=== PATIENT | male | born 1990 | race Caucasian/White ===

== ENCOUNTER 2017-03-30 09:13 | Emergency (ER) | payer BC ==
[2017-03-30 09:59] VITALS: RESP 16
[2017-03-30] MEDS ORDERED: ONDANSETRON 4 MG/2 ML VIAL IVP STA (10:22)
[2017-03-30] MEDS ORDERED: SODIUM CHLORIDE 0.9% 1,000 ML IV STA ×2 (10:22)
[2017-03-30] MEDS ORDERED: FAMOTIDINE 20 MG/2 ML VIAL IV STA (10:22)
--- NOTE | 2017-03-30 10:26 | ED ---
General Adult HPI - General Chief complaint: Abdominal Pain Stated complaint: Weakness Time Seen by Provider: 03/30/17 10:10 Source: patient, RN notes reviewed Mode of arrival: wheelchair Limitations: no limitations - History of Present Illness Initial comments: Patient is a 26-year-old male who presents emergency room today with chief complaint of abdominal pain and feeling weak. Patient does admit that symptoms started 4 days ago. States feels like he needs to have bowel movement but is only having small amounts. States he's had loose stools. Does admit that he was on her recent antibiotic approximately 2 weeks ago for a sinus infection. Does admit that there is improvement of the sinus congestion but is now had some symptoms of nausea. Admits to increased acid reflux. Admits to generalized cramping in his abdomen that comes and goes. States her cramping at this time. Patient denies any recent fever, chills, shortness of breath, chest pain, back pain, numbness or tingling, dysuria or hematuria, constipation or diarrhea, headaches or visual changes, or any other complaints. - Related Data Home Medications Medication Instructions Recorded Confirmed Fluticasone Nasal [place] [Flonase 1 spray EA NOSTRIL DAILY 03/30/17 03/30/17 Nasal [place]an[place]va] Ibuprofen [Motrin] 800 mg PO DAILY PRN 03/30/17 03/30/17 Loratadine [Claritin] 10 mg PO DAILY 03/30/17 03/30/17 Previous Rx's Medication Instructions Recorded Ondansetron Odt [Zofran ODT] 4 mg PO Q8HR PRN #20 tab 03/30/17 Allergies Allergy/AdvReac Type Severity Reaction Status Date / Time No Known Allergies Allergy Verified 03/30/17 11:10 Review of Systems ROS Statement: Those systems with pertinent positive or pertinent negative responses have been documented in the HPI. ROS Other: All systems not noted in ROS Statement are negative. Past Medical History Past Medical History: No Reported History History of Any Multi-Drug Resistant Organisms: None Reported Past Surgical History: No Surgical Hx Reported Past Psychological History: No Psychological Hx Reported Smoking Status: Never smoker Past Alcohol Use History: Occasional Past Drug Use History: None Reported General Exam Limitations: no limitations Course Vital Signs 03/30/17 03/30/17 09:54 12:48 Temperature 98.5 F 97.5 F L Pulse Rate 80 72 Respiratory 16 16 Rate Blood Pressure 154/100 132/78 O2 Sat by Pulse 98 98 Oximetry Medical Decision Making - Medical Decision Making Patient reexamined at this time shows no signs of distress. Patient does admit that he is feeling better here in the emergency room. Patient's labs been reviewed are unremarkable. X-ray of the abdomen was nonspecific. Patient was on antibiotics recently. Advised that it may be just reaction to the antibiotic. However, it was discussed about possibility of C. diff. Patient has not had any bowel movement here the emergency room but will be provided a prescription to have C. diff tests performed. Patient will also be given Zofran. Advised increased fluids. Advised follow-up family doctor over the next 2 days return to emergency room if any symptoms increase or worsen. Patient states understanding and is in agreement. - Lab Data Result diagrams: 03/30/17 12:00 03/30/17 12:00 Lab Results 03/30/17 03/30/17 Range/Units 12:00 12:00 WBC 10.3 (3.8-10.6) k/uL RBC 5.56 (4.30-5.90) m/uL Hgb 15.8 (13.0-17.5) gm/dL Hct 47.5 (39.0-53.0) % MCV 85.4 (80.0-100.0) fL MCH 28.4 (25.0-35.0) pg MCHC 33.3 (31.0-37.0) g/dL RDW 12.7 (11.5-15.5) % Plt Count 340 (150-450) k/uL Neutrophils % 63 % Lymphocytes % 28 % Monocytes % 6 % Eosinophils % 1 % Basophils % 1 % Neutrophils # 6.5 (1.3-7.7) k/uL Lymphocytes # 2.9 (1.0-4.8) k/uL Monocytes # 0.6 (0-1.0) k/uL Eosinophils # 0.1 (0-0.7) k/uL Basophils # 0.1 (0-0.2) k/uL Sodium 143 (137-145) mmol/L Potassium 4.0 (3.5-5.1) mmol/L Chloride 103 (98-107) mmol/L Carbon Dioxide 28 (22-30) mmol/L Anion Gap 12 mmol/L BUN 14 (9-20) mg/dL Creatinine 0.98 (0.66-1.25) mg/dL Est GFR (MDRD) Af Amer >60 (>60 ml/min/1.73 sqM) Est GFR (MDRD) Non-Af >60 (>60 ml/min/1.73 sqM) Glucose 82 (74-99) mg/dL Calcium 9.8 (8.4-10.2) mg/dL Total Bilirubin 0.9 (0.2-1.3) mg/dL AST 18 (17-59) U/L ALT 40 (21-72) U/L Alkaline Phosphatase 71 (38-126) U/L Total Protein 7.8 (6.3-8.2) g/dL Albumin 4.5 (3.5-5.0) g/dL Amylase 55 (30-110) U/L Lipase 79 (23-300) U/L Disposition Clinical Impression: Nausea vomiting and diarrhea Disposition: HOME SELF-CARE Condition: Good Instructions: Acute Diarrhea (ED) Additional Instructions: Please use medication as discussed. Please follow-up with family doctor in the next 2 days of symptoms have not improved. Please return to emergency room if the symptoms increase or worsen or for any other concerns. Prescriptions: Ondansetron Odt [Zofran ODT] 4 mg PO Q8HR PRN #20 tab PRN Reason: Nausea Referrals: Jabsir Calvo MD [Primary Care Provider] - 1-2 days Time of Disposition: 13:08
--- NOTE | 2017-03-30 12:00 | XR ---
EXAMINATION TYPE: XR KUB DATE OF EXAM: 03/30/2017 11:56 AM COMPARISON: NONE HISTORY: Pain TECHNIQUE: Single supine KUB image of the abdomen is obtained FINDINGS: Small bowel demonstrates no evidence for dilatation or air fluid levels. Gas and fecal material is seen in non-distended colon. No convincing evidence for pneumoperitoneum. No unusual calcifications. The lung bases are clear. The osseous structures are intact. IMPRESSION: 1. Overall nonobstructive bowel gas pattern.
[2017-03-30 12:17] LABS: Basophils # (A) 0.1 k/uL (0-0.2); Basophils % (A) 1 %; CH 28.9; CHCM 33.9; Eosinophils # (A) 0.1 k/uL (0-0.7); Eosinophils % (A) 1 %; HCT 47.5 % (39.0-53.0); HDW 2.45; HGB 15.8 gm/dL (13.0-17.5); Luc # (Auto) 0.17; Luc % (Auto) 2; Lymphocytes # (A) 2.9 k/uL (1.0-4.8); Lymphocytes % (A) 28 %; MCH 28.4 pg (25.0-35.0); MCHC 33.3 g/dL (31.0-37.0); MCV 85.4 fL (80.0-100.0); Mean Platelet Volume 6.8; Monocytes # (A) 0.6 k/uL (0-1.0); Monocytes % (A) 6 %; Neutrophils # (A) 6.5 k/uL (1.3-7.7); Neutrophils % (A) 63 %; RBC 5.56 m/uL (4.30-5.90); RDW 12.7 % (11.5-15.5); WBC 10.3 k/uL (3.8-10.6)
[2017-03-30 12:34] LABS: ALT 40 U/L (21-72); AST 18 U/L (17-59); Alkaline Phosphatase 71 U/L (38-126); Amylase 55 U/L (30-110); Anion Gap 12 mmol/L; Blood Urea Nitrogen 14 mg/dL (9-20); Calcium 9.8 mg/dL (8.4-10.2); Carbon Dioxide 28 mmol/L (22-30); Chloride 103 mmol/L (98-107); Glucose 82 mg/dL (74-99); Non-African American GFR(MDRD) >60 (>60 ml/min/1.73 sqM); Sodium 143 mmol/L (137-145); Total Bilirubin 0.9 mg/dL (0.2-1.3); Total Protein 7.8 g/dL (6.3-8.2)
[2017-03-30 13:10] LABS: Appearance,Urine Clear (Clear); Bilirubin,Urine Negative (Negative); Glucose,Urine (UA) Negative (Negative); Ketones,Urine Negative (Negative); Leukocyte Esterase,Urine Negative (Negative); Nitrite,Urine Negative (Negative); PH, Urine 6.5 (5.0-8.0); Protein,Urine Negative (Negative); Specific Gravity,Urine 1.017 (1.001-1.035); UA Billing (MACRO vs. MICRO) CHEM; Urobilinogen,Urine <2.0 mg/dL (<2.0)
[2017-03-30 13:50] VITALS: BP 146/87; PULSE 90; TEMP 97.4
== END 2017-03-30 13:48 | disposition home or self-care (01) ==
LOC: EC 09:13
DX: R11.2 Nausea with vomiting, unspecified (principal); R19.7 Diarrhea, unspecified; R10.84 Generalized abdominal pain; R53.1 Weakness; Z79.51 Long term (current) use of inhaled steroids; Z79.899 Other long term (current) drug therapy
CPT/HCPCS: 36415; 80053; 82150; 83690; 85025; 81003; 74000; 99284; 96374; 96375; 96361; J2405

== ENCOUNTER → 2019-07-14 | Outpatient (CLI) | payer BC ==
[2019-07-14 16:40] LABS: ALT 30 U/L (10-49); AST 20 U/L (14-35)
== END | disposition home or self-care (01) ==
LOC: LABWHC1 12:03
PROVIDERS: ATTEND Podiatrist Foot & Ankle Surgery
DX: K76.9 Liver disease, unspecified (principal)
CPT/HCPCS: 36415; 84450; 84460

== ENCOUNTER → 2019-09-15 | Outpatient (CLI) | payer BC ==
[2019-09-15 19:11] LABS: ALT 22 U/L (10-49); AST 16 U/L (14-35)
== END | disposition home or self-care (01) ==
LOC: LABWHC1 13:28
PROVIDERS: ATTEND Podiatrist Foot & Ankle Surgery
DX: K76.9 Liver disease, unspecified (principal)
CPT/HCPCS: 36415; 84450; 84460

== ENCOUNTER → 2019-11-02 | Outpatient (CLI) | payer BC ==
[2019-11-02 19:37] LABS: ALT 23 U/L (10-49); AST 21 U/L (14-35)
== END | disposition home or self-care (01) ==
LOC: LABWHC1 13:50
PROVIDERS: ATTEND Podiatrist Foot & Ankle Surgery
DX: K76.9 Liver disease, unspecified (principal)
CPT/HCPCS: 36415; 84450; 84460

== ENCOUNTER 2024-07-31 16:53 | Emergency (ER) | payer BC ==
[2024-07-31 17:02] VITALS: TEMP 98.5
--- NOTE | 2024-07-31 17:08 | ED ---
Abdominal Pain HPI - General Chief Complaint: Abdominal Pain Stated Complaint: Abd pain Time Seen by Provider: 07/31/24 17:07 Source: patient, RN notes reviewed Mode of arrival: ambulatory Limitations: no limitations - History of Present Illness Initial Comments: 34-year-old male with no significant history presents emergency department for chief complaint of right lower quadrant abdominal pain. Patient states that over the past week he has been feeling constipated where he took MiraLAX at home and had a episode of diarrhea this morning. Patient states that right lower quadrant abdominal pain has been present over the past 3 to 4 days. Denies mi gration of pain. Denies nausea, vomiting, fevers, chills. No previous surgical abdominal history. Patient was evaluated urgent care this afternoon where he was instructed report to the emergency department for further evaluation of potential appendicitis. - Related Data Home Medications Medication Instructions Recorded Confirmed Escitalopram [Lexapro] 10 mg PO DAILY 07/31/24 07/31/24 Losartan-Hctz 50-12.5 mg [Hyzaar 1 tab PO DAILY 07/31/24 07/31/24 50-12.5] Rosuvastatin [Crestor] 10 mg PO DAILY 07/31/24 07/31/24 Allergies Allergy/AdvReac Type Severity Reaction Status Date / Time No Known Allergies Allergy Verified 07/31/24 18:23 Review of Systems ROS Statement: Those systems with pertinent positive or pertinent negative responses have been documented in the HPI. ROS Other: All systems not noted in ROS Statement are negative. Past Medical History Past Medical History: No Reported History History of Any Multi-Drug Resistant Organisms: None Reported Past Surgical History: No Surgical Hx Reported Past Psychological History: No Psychological Hx Reported Smoking Status: Never smoker Past Alcohol Use History: Occasional Past Drug Use History: Marijuana General Exam Limitations: no limitations General appearance: alert, in no apparent distress ENT exam: Present: normal exam, mucous membranes moist Neck exam: Present: normal inspection. Absent: tenderness, meningismus, lymphadenopathy Respiratory exam: Present: normal lung sounds bilaterally. Absent: respiratory distress, wheezes, rales, rhonchi, stridor Cardiovascular Exam: Present: regular rate, normal rhythm, normal heart sounds. Absent: systolic murmur, diastolic murmur, rubs, gallop, clicks GI/Abdominal exam: Present: soft, tenderness (McBurney point tenderness), normal bowel sounds. Absent: distended, guarding, rebound, rigid Extremities exam: Present: normal inspection, full ROM, normal capillary refill. Absent: tenderness, pedal edema, joint swelling, calf tenderness Back exam: Present: normal inspection Skin exam: Present: warm, dry, intact, normal color. Absent: rash Course Vital Signs 07/31/24 07/31/24 16:57 18:45 Temperature 98.5 F Pulse Rate 68 82 Respiratory 20 16 Rate Blood Pressure 168/94 128/86 O2 Sat by Pulse 99 98 Oximetry Medical Decision Making - Medical Decision Making Was pt. sent in by a medical professional or institution (, PA, INDUSTRIAL RETROFIT DESIGNER, urgent care, hospital, or [place] health care facility...) When possible be specific @ -Was advised by urgent care to report to the emergency department for further evaluation of right lower quadrant abdominal pain Did you speak to anyone other than the patient for history (EMS, parent, family, police, friend...)? What history was obtained from this source @ -No Did you review nursing and triage notes (agree or disagree)? Why? @ -I reviewed and agree with nursing and triage notes Were old charts reviewed (outside hosp., previous admission, EMS record, old EKG, old radiological studies, urgent care reports/EKG's, [place] health care facility records)? Report findings @ -No old charts were reviewed Differential Diagnosis (chest pain, altered mental status, abdominal pain women, abdominal pain men, vaginal bleeding, weakness, fever, dyspnea, syncope, headache, dizziness, GI bleed, back pain, seizure, CVA, palpatations, mental health, musculoskeletal)? @ -Differential Abdominal Pain Men: Appendicitis, cholecystitis, diverticulosis, ischemic bowel, pancreatitis, hepatitis, UTI, gastroenteritis, AAA, incarcerated hernia, bowel obstruction, constipation, inflammatory bowel, hepatitis, peptic ulcer disease, splenic infarction, perforated viscus, testicular torsion, this is not meant to be an all-inclusive list EKG interpreted by me (3pts min.). @ -None X-rays interpreted by me (1pt min.). @ -None done CT interpreted by me (1pt min.). @ -CT of the abdomen and pelvis with IV contrast no suspicious abnormalities through the right lower quadrant, appendix well-visualized. U/S interpreted by me (1pt. min.). @ -None done What testing was considered but not performed or refused? (CT, X-rays, U/S, labs)? Why? @ -None What meds were considered but not given or refused? Why? @ -None Did you discuss the management of the patient with other professionals (professionals i.e. , PA, INDUSTRIAL RETROFIT DESIGNER, lab, RT, psych nurse, neonatal social worker, yard cleaner, teacher, assault amphibious vehicle officer, case manager specialist)? Give summary @ -No Was smoking cessation discussed for >3mins.? @ -No Was critical care preformed (if so, how long)? @ -No Were there social determinants of health that impacted care today? How? (Homelessness, low income, unemployed, alcoholism, drug addiction, transportation, low edu. Level, literacy, decrease access to med. care, detention, rehab)? @ -No Was there de-escalation of care discussed even if they declined (Discuss DNR or withdrawal of care, Hospice)? DNR status @ -No What co-morbidities impacted this encounter? (DM, HTN, Smoking, COPD, CAD, Cancer, CVA, ARF, Chemo, Hep., AIDS, mental health diagnosis, sleep apnea, morbid obesity)? @ -None Was patient admitted / discharged? Hospital course, mention meds given and route, prescriptions, significant lab abnormalities, going to OR and other pertinent info. @ -Discharged. 34-year-old with right lower quadrant abdominal pain. On examination patient noted to have tenderness over McBurney's point, no rebound tenderness, negative Rovsing's sign. Patient was offered pain medication at this time but he states that he is feeling fine declined. CBC, CMP, coagulation profile within normal limits, CT negative for acute intra-abdominal process. Discussed with patient at bedside that current laboratory studies and CT imaging are not indicative of acute appendicitis however return to emergency department for new or worsening symptoms. All questions answered at bedside and strict return parameters discussed with the patient is verbalized understanding. Discussed with Dr. Sorensen Undiagnosed new problem with uncertain prognosis? @ -No Drug Therapy requiring intensive monitoring for toxicity (Heparin, Nitro, Insulin, Cardizem)? @ -No Were any procedures done? @ -No Diagnosis/symptom? @ -Abdominal pain Acute, or Chronic, or Acute on Chronic? @ -acute Uncomplicated (without systemic symptoms) or Complicated (systemic symptoms)? @ -uncomplicated Side effects of treatment? @ -No Exacerbation, Progression, or Severe Exacerbation? @ -No Poses a threat to life or bodily function? How? (Chest pain, [place], [place], pneumonia, PE, COPD, DKA, ARF, appy, cholecystitis, CVA, Diverticulitis, Homicidal, Suicidal, threat to staff... and all critical care pts) @ -No - Lab Data Result diagrams: 07/31/24 17:29 07/31/24 17:29 Lab Results 07/31/24 07/31/24 07/31/24 Range/Units 17:29 17:29 17:29 WBC 8.7 (3.8-10.6) k/uL RBC 5.23 (4.30-5.90) m/uL Hgb 15.1 (13.0-17.5) gm/dL Hct 45.4 (39.0-53.0) % MCV 86.7 (80.0-100.0) fL MCH 28.8 (25.0-35.0) pg MCHC 33.3 (31.0-37.0) g/dL RDW 12.4 (11.5-15.5) % Plt Count 339 (150-450) k/uL MPV 7.7 Neutrophils % 59 % Lymphocytes % 32 % Monocytes % 6 % Eosinophils % 1 % Basophils % 0 % Neutrophils # 5.1 (1.3-7.7) k/uL Lymphocytes # 2.7 (1.0-4.8) k/uL Monocytes # 0.5 (0-1.0) k/uL Eosinophils # 0.1 (0-0.7) k/uL Basophils # 0.0 (0-0.2) k/uL PT 9.9 L (10.0-12.5) sec INR 0.9 (<1.2) APTT 25.3 (22.0-30.0) sec Sodium 141 (137-145) mmol/L Potassium 4.1 (3.5-5.1) mmol/L Chloride 101 (98-107) mmol/L Carbon Dioxide 28 (22-30) mmol/L Anion Gap 12 mmol/L BUN 14 (9-20) mg/dL Creatinine 0.94 (0.66-1.25) mg/dL Est GFR (CKD-EPI)AfAm >90 (>60 ml/min/1.73 sqM) Est GFR (CKD-EPI)NonAf >90 (>60 ml/min/1.73 sqM) Glucose 90 (74-99) mg/dL Plasma Lactic Acid Adrian (0.7-2.0) mmol/L Calcium 9.8 (8.4-10.2) mg/dL Total Bilirubin 0.7 (0.2-1.3) mg/dL AST 29 (17-59) U/L ALT 30 (4-49) U/L Alkaline Phosphatase 63 (38-126) U/L Total Protein 7.6 (6.3-8.2) g/dL Albumin 4.9 (3.5-5.0) g/dL Amylase 55 (30-110) U/L Lipase 92 (23-300) U/L 07/31/24 Range/Units 17:29 WBC (3.8-10.6) k/uL RBC (4.30-5.90) m/uL Hgb (13.0-17.5) gm/dL Hct (39.0-53.0) % MCV (80.0-100.0) fL MCH (25.0-35.0) pg MCHC (31.0-37.0) g/dL RDW (11.5-15.5) % Plt Count (150-450) k/uL MPV Neutrophils % % Lymphocytes % % Monocytes % % Eosinophils % % Basophils % % Neutrophils # (1.3-7.7) k/uL Lymphocytes # (1.0-4.8) k/uL Monocytes # (0-1.0) k/uL Eosinophils # (0-0.7) k/uL Basophils # (0-0.2) k/uL PT (10.0-12.5) sec INR (<1.2) APTT (22.0-30.0) sec Sodium (137-145) mmol/L Potassium (3.5-5.1) mmol/L Chloride (98-107) mmol/L Carbon Dioxide (22-30) mmol/L Anion Gap mmol/L BUN (9-20) mg/dL Creatinine (0.66-1.25) mg/dL Est GFR (CKD-EPI)AfAm (>60 ml/min/1.73 sqM) Est GFR (CKD-EPI)NonAf (>60 ml/min/1.73 sqM) Glucose (74-99) mg/dL Plasma Lactic Acid Adrian 1.2 (0.7-2.0) mmol/L Calcium (8.4-10.2) mg/dL Total Bilirubin (0.2-1.3) mg/dL AST (17-59) U/L ALT (4-49) U/L Alkaline Phosphatase (38-126) U/L Total Protein (6.3-8.2) g/dL Albumin (3.5-5.0) g/dL Amylase (30-110) U/L Lipase (23-300) U/L Disposition Clinical Impression: Abdominal pain Disposition: HOME SELF-CARE Condition: Good Instructions (If sedation given, give patient instructions): Abdominal Pain (ED) Additional Instructions: Return to the emergency department for any new or worsening symptoms Is patient prescribed a controlled substance at d/c from ED?: No Referrals: Jasbir Calvo MD [Primary Care Provider] - 1-2 days Time of Disposition: 18:20
[2024-07-31 17:50] LABS: Basophils % (A) 0 %; Eosinophils # (A) 0.1 k/uL (0-0.7); Eosinophils % (A) 1 %; HCT 45.4 % (39.0-53.0); HGB 15.1 gm/dL (13.0-17.5); Lymphocytes # (A) 2.7 k/uL (1.0-4.8); Lymphocytes % (A) 32 %; MCH 28.8 pg (25.0-35.0); MCHC 33.3 g/dL (31.0-37.0); MCV 86.7 fL (80.0-100.0); Mean Platelet Volume 7.7; Monocytes # (A) 0.5 k/uL (0-1.0); Monocytes % (A) 6 %; Neutrophils # (A) 5.1 k/uL (1.3-7.7); Neutrophils % (A) 59 %; Platelet Count 339 k/uL (150-450); RBC 5.23 m/uL (4.30-5.90); RDW 12.4 % (11.5-15.5); WBC 8.7 k/uL (3.8-10.6)
[2024-07-31 18:02] LABS: INR 0.9 (<1.2); Partial Thromboplastin Time 25.3 sec (22.0-30.0); Prothrombin Time 9.9 sec (10.0-12.5)
--- NOTE | 2024-07-31 18:02 | CT ---
EXAMINATION TYPE: CT abdomen pelvis w con DATE OF EXAM: 07/31/2024 COMPARISON: None INDICATION: RLQ abdominal pain DLP: 963.8 mGycm, Automated exposure control for dose reduction was used. CONTRAST: 100 ml mL of Isovue 300. Study performed without Oral Contrast TECHNIQUE: Axial images were obtained from above the diaphragm to the pubic rami in the axial plane a t 5 mm thick sections. Reconstructed images are reviewed on the computer in the coronal plane. FINDINGS: Limited CT sections are obtained the lung bases. The lung bases are clear. CT ABDOMEN: Liver: Normal Spleen: Normal Pancreas: Normal Adrenal glands: The adrenal glands are normal. Gallbladder: Normal Kidneys: No masses are evident. No hydronephrosis is present. No cysts are present. Delayed images were obtained through the kidneys, which remain unremarkable. Aorta: Normal Inferior vena cava: Normal. CT PELVIS: Loops of bowel within the abdomen and pelvis are normal. This study is without oral contrast limi ting bowel evaluation. Small amount of fluid filled small bowel loops within the lower pelvis may be some mild ileus. Appendix: Well-visualized. No adjacent inflammatory changes or dilatation is evident. Urinary bladder: Normal. Genitourinary structures: Prostate appears normal. Osseous structures: No suspicious lytic or sclerotic lesions. IMPRESSION: 1. No suspicious abnormality without right lower quadrant pain. 2. Well-visualized appendix. Clinical management for any suspected appendicitis. [facility], , 07/31/2024 5:59 PM
[2024-07-31 18:11] LABS: ALT 30 U/L (4-49); AST 29 U/L (17-59); African American GFR (CKD) >90 (>60 ml/min/1.73 sqM); Albumin 4.9 g/dL (3.5-5.0); Alkaline Phosphatase 63 U/L (38-126); Amylase 55 U/L (30-110); Anion Gap 12 mmol/L; Blood Urea Nitrogen 14 mg/dL (9-20); Calcium 9.8 mg/dL (8.4-10.2); Carbon Dioxide 28 mmol/L (22-30); Chloride 101 mmol/L (98-107); Glucose 90 mg/dL (74-99); Lipase 92 U/L (23-300); Non-African American GFR(CKD) >90 (>60 ml/min/1.73 sqM); Potassium 4.1 mmol/L (3.5-5.1); Sodium 141 mmol/L (137-145); Total Bilirubin 0.7 mg/dL (0.2-1.3); Total Protein 7.6 g/dL (6.3-8.2)
[2024-07-31 18:47] VITALS: BP 128/86; PULSE 82; RESP 16
== END 2024-07-31 18:47 | disposition home or self-care (01) ==
LOC: EC 16:53
DX: R10.9 Unspecified abdominal pain (principal)
CPT/HCPCS: 36415; 74177; 80053; 82150; 83605; 83690; 85025; 85610; 85730; 99284

== ENCOUNTER → 2024-08-21 | Outpatient (CLI) | payer BC ==
--- NOTE | 2024-08-21 12:16 | XR ---
EXAMINATION TYPE: XR cervical spine 3 views DATE OF EXAM: 08/21/2024 Comparison: None Clinical History: 34-year-old male left-sided pain and numbness, M54.12 radiculopathy Findings: No predental space widening or prevertebral soft tissue swelling. Alignment is preserved as are disc interspaces. No acute fracture seen. Normal odontoid view. Mild early uncovertebral joint spurring in the mid cervical spine. Impression: Mild early uncovertebral joint degenerative spurring in the mid cervical spine. Otherwise, unremarkab le radiographic appearance. [facility], , 08/21/2024 12:14 PM
== END | disposition home or self-care (01) ==
LOC: RADXRMAIN 10:53
PROVIDERS: ATTEND Internal Medicine
DX: M50.10 Cervical disc disorder with radiculopathy, unspecified cervical region (principal)
CPT/HCPCS: 72040

== ENCOUNTER → 2024-10-24 | Outpatient (CLI) | payer BC ==
--- NOTE | 2024-10-27 20:46 | MR ---
EXAMINATION TYPE: MR cervical spine wo con DATE OF EXAM: 10/24/2024 6:04 PM COMPARISON: None. CLINICAL INDICATION: Male, 34 years old with history of M54.12, Neck pain and numbness into left arm x3-4 months TECHNIQUE: Multiplanar multiecho imaging on a 3.0 Rocio magnet is performed through the cervical spin e. IV Contrast: mL (None, if empty) FINDINGS: The craniovertebral junction is normal. Vertebral body alignment is normal. Some mild di sc desiccation may be at C2-C3 C3-C4 levels. C7-T1: No focal disc herniation or significant disc bulge is evident. No spinal canal stenosis or n eural foraminal stenosis is present. C6-7: No focal disc herniation or significant disc bulge is evident. No spinal canal stenosis or anuj ral foraminal stenosis is present. C5-6: Left paracentral disc herniation appears to be present with mild anterior thecal sac compressio n. No cord contact. No spinal canal stenosis is present correlate with left radicular symptoms. C4-5: No focal disc herniation or significant disc bulge is evident. No spinal canal stenosis. Mild bilateral foraminal narrowing is present C3-4: No focal disc herniation or significant disc bulge is evident. No spinal canal stenosis or anuj ral foraminal stenosis is present. C2-3: No focal disc herniation or significant disc bulge is evident. No spinal canal stenosis or anuj ral foraminal stenosis is present. IMPRESSION: 1. Left paracentral disc herniation C5-6 without cord contact or spinal canal stenosis. Correlate wit h left C5 radicular symptoms [facility], , 10/27/2024 8:43 PM
== END | disposition home or self-care (01) ==
LOC: RADMRIMAIN 17:10
PROVIDERS: ATTEND Internal Medicine
DX: M50.122 Cervical disc disorder at C5-C6 level with radiculopathy (principal)
CPT/HCPCS: 72141

== ENCOUNTER → 2024-12-11 | Outpatient (CLI) | payer BC ==
[2024-12-11 12:11] VITALS: BP 136/85; PULSE 84; RESP 19; TEMP 97.5
--- NOTE | 2024-12-11 15:20 | P.PAINPG ---
PQRS Measure Charge Sheet Comment: HISTORY OF PRESENT ILLNESS: A 34 yr old male as a referral from Dr Calvo presents today w severe and chronic neck pain secondary to radiculopathy, spondylosis and facet arthropathy without myelopathy for evaluation. Pt states pain level is provoked at 6 /10 in intensity, constant, localized in the mid to lower cervical spine, predominantly axial, sharp in character w occasional shooting pain towards the LUE. Pain is provoked by lifting. Pain is alleviated by PT x 6 wks which ended in Oct 2024, physician guided home exercises 4-5times weekly since Oct 2024, medications (Ibu), topical, repositioning and rest . Cervical disability score at 26. PMH: OA, HTN, Hyperlipidemia, MDD, Seasonal Allergies PSH: Denies SH: Never smoker, Occ ETOH use, Cannabis use FH: Non contributory All: See list Meds: See list REVIEW OF ORGAN SYSTEMS: CONSTITUTIONAL: No fevers or chills. No recent weight loss. NEUROLOGICAL: + numbness and tingling along the distal extremities. No seizure disorders or headaches. MUSCULOSKELETAL: + pain PSYCHIATRIC: Denies current depression or suicidal thoughts. Physical Examinations : Constitutional : Cooperative , not in acute distress . Neurologic : Cranial nerve II to XII intact. No focal neurological deficits. Psychiatric : alert & oriented x 3. Matching mood & appropriate affect. Judgment & insight intact. Musculoskeletal : Cervical Spine Motor strength in the deltoid and biceps: Normal right side. Normal Left side Motor strength biceps and the wrist extensors: Normal right side . Normal left side Motor strength in the triceps muscle: Normal right side. Normal left side Deep tendon reflexes: Normal at the biceps. Normal at Brachioradialis. Normal at triceps Vertebral body tenderness to deep palp ation over C6 Cervical facet loading test: positive bilaterally Spurling test: positive L> R C6-C7 Neck distraction test: positive bilaterally Kenny sign: positive bilaterally Lumbar spine Motor strength lower extremities ,thigh and legs 5/5 Right side , 5/5 Left side Deep tendon reflexes : Normal Knee Jerk. Normal Ankle Jerk Vertebral body tenderness over Cornejo Test positive Lumbar facet Loading Test: positive Right / positive Left Range of motion of the lumbar spine Flexion 30 degrees, extension 10 degrees Straight Leg Raise test: Left/ Right positive at degrees Ranjan test: positive right / positive left. Severe tenderness over the Sacroiliac joint on the Right / Left sides Gaenslen test: positive bilaterally Seated flexion test: positive bilaterally. Sacral spine : Severe tenderness over the Sacroiliac joint: right side / left side Range of motion: Flexion of the lumbar spine <60 degrees Range of motion: Extension of the lumbar spine <20 degrees Gaenslen's Test positive Ranjan test: positive right side / left side Thigh Thrust Test Sacral Thrust Test Imaging: MRI non contrast cervical spine from 10/24/25 reviewed Assessment/ Plan : L paracentral C5-C6 herniation Recommendation of GERARD L paramedian C6-C7 #1. Risks, benefits of procedure discussed and patient verbalized understanding. Admits to anti- coagulant use or medical history of diabetes. Protocol for discontinuation/ continuation of medications jessy procedure discussed. All questions answered. I have spent greater than 30 minutes on patient care today. Dr Fox was available by phone for the evaluation of this patient. The time was used to review the medical records including relevant urine studies and Prescription history (MAPs), review of the available imaging, evaluation and examination of the patient, coordination of care with the medical staff and if applicable referring physicians, as well as creation of the medical record PQRS Narrative: Smoking Status Never smoker Home Medications: Ambulatory Orders Escitalopram [Lexapro] 10 mg PO DAILY 07/31/24 Losartan-Hctz 50-12.5 mg [Hyzaar 50-12.5] 1 tab PO DAILY 07/31/24 Rosuvastatin [Crestor] 10 mg PO DAILY 07/31/24 Controlled Substance Measures - Controlled Substance Measures Is patient prescribed a controlled substance at discharge?: No
== END ==
LOC: PNWHC3 09:58
PROVIDERS: ATTEND Specialist
DX: M50.222 Other cervical disc displacement at C5-C6 level (principal)
CPT/HCPCS: 99211

== ENCOUNTER 2025-01-05 06:11 | Day surgery (SDC) | payer BC ==
[~2025-01-05 06:11] MED LIST: LACTATED RINGERS 1,000 ML IV SCH
[2025-01-05 06:31] VITALS: TEMP 97.5
[2025-01-05] MEDS ORDERED: DEXAMETHASONE SOD PHOSPHATE 10 MG/ML 1 ML VIAL ONE (07:04)
[2025-01-05] MEDS ORDERED: IOPAMIDOL M200 10 ML VIAL ONE (07:04)
--- NOTE | 2025-01-05 07:15 | P.PCN ---
Date of Procedure: 01/05/25 Procedure(s) Performed: . PROCEDURE 1. Cervical epidural steroid injection under fluoroscopic guidance, C6-7 (fluoroscopy images available in the radiology department ) 2. Cervical epidurogram. PREOPERATIVE DIAGNOSIS: 1- Cervical herniated Disc Diseases 2- Cervical radiculopathy. POSTOPERATIVE DIAGNOSIS: : 1- Cervical Herniated Disc Diseases , 2- Cervical radiculopathy. ANESTHESIA: Local anesthesia with lidocaine 1% 3 ml only EBL 0 PROCEDURE INDICATION: The patient with neck pain and radiculitis unresponsive to conservative treatment consents for procedure. PROCEDURE DESCRIPTION / TECHNIQUE: The patient was seen and identified in the preoperative area. Risks, benefits, complications, including but not limited to infections ,bleeding , allergic reactions to the medications ,and not complete pain releife, and alternatives were discussed with the patient, the patient agreed to proceed with the procedure and signed the consent. Patient was taken to the OR and time out was completed. The patient was placed in the prone position on the procedure table. A pillow was placed under the patients chest to increase the cervical interlaminar space. The cervical area was prepped and draped in the usual sterile fashion. Vital signs were closely monitored during the procedure. Using anterior-posterior fluoroscopy, the C6-7 interlaminar space was identified and the skin over this site was marked and then infiltrated with 1% lidocaine subcutaneously. Subsequently, a 20-gauge 3-1/2-inch Tuohy epidural needle was inserted ( left paramedial ) ,and advanced toward the epidural space by means of the ``hanging-drop technique and guided by AP and lateral fluoroscopy. The correct needle position in the epidural space was verified with the injection of 2 mL of the water soluble contrast dye [id number] and observing an excellent epidurogram with the epidural spread of the dye, after negative aspiration for blood and CSF and in the absence of paresthesias. then, mixture containing 20 mg Dexamethasone and 2 ml of preservative-free normal saline injected and a washout of epidurogram was seen. Needle was withdrawn intact, skin was cleansed, and bandages were applied. Complications= none. Disposition= patient was placed in supine position and transferred to the [facility] very room area in stable condition and there was no evidence of upper or lower extremity motor or sensory deficit after the procedure patient was discharged from recovery room after discharge criteria met and home discharge instructions was given by the staff and patient will follow with the pain clinic in 2-4 weeks
[2025-01-05 07:17] VITALS: BP 140/93; PULSE 74; RESP 18
--- NOTE | 2025-01-05 07:28 | FL ---
Fluoroscopy INDICATION: Pain FINDINGS: Fluoroscopy time: 3.8 seconds. Total dose area product (DAP) in uGy*m?, mGy*cm? (or similar): 0.12288 Images obtained: 2. Images document the needle directed towards the cervical spine IMPRESSION: 1. Documentation of fluoroscopy. [facility], , 01/05/2025 7:26 AM
== END 2025-01-05 07:33 | disposition home or self-care (01) ==
LOC: ORPAIN 06:11
PROVIDERS: ATTEND Specialist
DX: M50.123 Cervical disc disorder at C6-C7 level with radiculopathy (principal)
CPT/HCPCS: 62321; J1100; Q9966

== ENCOUNTER → 2025-01-29 | Outpatient (CLI) | payer BC ==
[2025-01-29 10:39] VITALS: BP 135/87; PULSE 72; RESP 19; TEMP 98.9
--- NOTE | 2025-01-29 15:16 | P.PAINPG ---
PQRS Measure Charge Sheet Comment: HISTORY OF PRESENT ILLNESS: A 34 yr old male presents today w severe and chronic neck pain secondary to radiculopathy, spondylosis and facet arthropathy without myelopathy for evaluation s/p GERARD C6-C7 #1. Pt states he experienced 80 % pain relief x 3 wks s/p procedure. Pt states pain level is provoked at 6 /10 in intensity, intermittent, localized in the mid to lower cervical spine, predominantly axial, sharp in character w occasional shooting pain towards the LUE. Pain is provoked by lifting. Pain is alleviated by PT x 6 wks which ended in Oct 2024, physician guided home exercises 4-5 times weekly since Oct 2024, medications, topical, THC, repositioning and rest . Interventional procedures include GERARD C6-C7 x1 Medications include Ibu, Cannabis use REVIEW OF ORGAN SYSTEMS: CONSTITUTIONAL: No fevers or chills. No recent weight loss. NEUROLOGICAL: + numbness and tingling along the distal extremities. No seizure disorders or headaches. MUSCULOSKELETAL: + pain PSYCHIATRIC: Denies current depression or suicidal thoughts. Physical Examinations : Constitutional : Cooperative , not in acute distress . Neurologic : Cranial nerve II to XII intact. No focal neurological deficits. Psychiatric : alert & oriented x 3. Matching mood & appropriate affect. Judgment & insight intact. Musculoskeletal : Cervical Spine Motor strength in the deltoid and biceps: Normal right side. Normal Left side Motor strength biceps and the wrist extensors: Normal right side . Normal left side Motor strength in the triceps muscle: Normal right side. Normal left side Deep tendon reflexes: Normal at the biceps. Normal at Brachioradialis. Normal at triceps Vertebral body tenderness to deep palpation over C6 Cervical facet loading test: positive bilaterally Spurling test: positive L> R C6-C7 Neck distraction test: positive bilaterally Kenny sign: positive bilaterally Lumbar spine Motor strength lower extremities ,thigh and legs 5/5 Right side , 5/5 Left side Deep tendon reflexes : Normal Knee Jerk. Normal Ankle Jerk Vertebral body tenderness over Cornejo Test positive Lumbar facet Loading Test: positive Right / positive Left Range of motion of the lumbar spine Flexion 30 degrees, extension 10 degrees Straight Leg Raise test: Left/ Right positive at degrees Ranjan test: positive right / positive left. Severe tenderness over the Sacroiliac joint on the Right / Left sides Gaenslen test: positive bilaterally Seated flexion test: positive bilaterally. Sacral spine : Severe tenderness over the Sacroiliac joint: right side / left side Range of motion: Flexion of the lumbar spine <60 degrees Range of motion: Extension of the lumbar spine <20 degrees Gaenslen's Test positive Ranjan test: positive right side / left side Thigh Thrust Test Sacral Thrust Test Imaging: MRI non contrast cervical spine from 10/24/25 reviewed Assessment/ Plan : L paracentral C5-C6 herniation Recomendation of GERARD C6-C7 #2. Risks, benefits of procedure discussed and patient verbalized understanding. Protocol for discontinuation/continuation of medication surrounding procedure discussed. All questions answered. I have spent greater than 30 minutes on patient care today. Dr Fox was available by phone for the evaluation of this patient. The time was used to review the medical records including relevant urine studies and Prescription history (MAPs), review of the available imaging, evaluation and examination of the patient, coordination of care with the medical staff and if applicable referring physicians, as well as creation of the medical record PQRS Narrative: Smoking Status Never smoker Hx Alcohol Use (MH) No Home Medications: Ambulatory Orders Escitalopram [Lexapro] 10 mg PO DAILY 07/31/24 Losartan-Hctz 50-12.5 mg [Hyzaar 50-12.5] 1 tab PO DAILY 07/31/24 Rosuvastatin [Crestor] 10 mg PO DAILY 07/31/24 Ibuprofen [Motrin] 800 mg PO Q8H PRN 01/03/25 Controlled Substance Measures - Controlled Substance Measures Is patient prescribed a controlled substance at discharge?: No
== END ==
LOC: PNWHC3 10:06
PROVIDERS: ATTEND Specialist
DX: M50.222 Other cervical disc displacement at C5-C6 level (principal)
CPT/HCPCS: 99212

== ENCOUNTER 2025-02-02 06:27 | Day surgery (SDC) | payer BC ==
[2025-02-02 06:47] VITALS: RESP 16
[2025-02-02] MEDS ORDERED: LACTATED RINGERS 1,000 ML IV SCH (07:05)
[2025-02-02] MEDS ORDERED: DEXAMETHASONE SOD PHOSPHATE 10 MG/ML 1 ML VIAL ONE (07:38)
[2025-02-02] MEDS ORDERED: IOPAMIDOL M200 10 ML VIAL ONE (07:38)
--- NOTE | 2025-02-02 07:56 | P.PCN ---
Date of Procedure: 02/02/25 Procedure(s) Performed: PROCEDURE 1. Cervical epidural steroid injection under fluoroscopic guidance, C6-7 (fluoroscopy images available in the radiology department ) 2. Cervical epidurogram. PREOPERATIVE DIAGNOSIS: 1- Cervical herniated Disc Diseases 2- Cervical radiculopathy. POSTOPERATIVE DIAGNOSIS: : 1- Cervical Herniated Disc Diseases , 2- Cervical radiculopathy. ANESTHESIA: Local anesthesia with lidocaine 1% 3 ml only EBL 0 PROCEDURE INDICATION: The patient with neck pain and radiculitis unresponsive to conservative treatment consents for procedure. PROCEDURE DESCRIPTION / TECHNIQUE: The patient was seen and identified in the preoperative area. Risks, benefits, complications, including but not limited to infections ,bleeding , allergic reactions to the medications ,and not complete pain releife, and alternatives were discussed with the patient, the patient agreed to proceed with the procedure and signed the consent. Patient was taken to the OR and time out was completed. The patient was placed in the prone position on the procedure table. A pillow was placed under the patients chest to increase the cervical interlaminar space. The cervical area was prepped and draped in the usual sterile fashion. Vital signs were closely monitored during the procedure. Using anterior-posterior fluoroscopy, the C6-7 interlaminar space was identified and the skin over this site was marked and then infiltrated with 1% lidocaine subcutaneously. Subsequently, a 20-gauge 3-1/2-inch Tuohy epidural needle was inserted ( left paramedial ) ,and advanced toward the epidural space by means of the ``hanging-drop technique and guided by AP and lateral fluoroscopy. The correct needle position in the epidural space was verified with the injection of 2 mL of the water soluble contrast dye [id number]-200 and observing an excellent epidurogram with the epidural spread of the dye, after negative aspiration for blood and CSF and in the absence of paresthesias. then, mixture containing 20 mg Dexamethasone and 2 ml of preservative-free normal saline injected and a washout of epidurogram was seen. Needle was withdrawn intact, skin was cleansed, and bandages were applied. Complications= none. Disposition= patient was placed in supine position and transferred to the [facility] ry room area in stable condition and there was no evidence of upper or lower extremity motor or sensory deficit after the procedure patient was discharged from recovery room after discharge criteria met and home discharge instructions was given by the staff and patient will follow with the pain clinic in 2-4 weeks
[2025-02-02 08:05] VITALS: BP 129/89; PULSE 74
--- NOTE | 2025-02-02 11:49 | FL ---
EXAMINATION TYPE: FL guided pain mgmt statistic DATE OF EXAM: 02/02/2025 11:23 AM COMPARISON: Pre Operative Images if available both CT/MRI or plain film CLINICAL INDICATION: Male, 34 years old with history of PAIN; TECHNIQUE: FL guided pain mgmt statistic, multiple fluoroscopic images provided for procedure. DAP: 0.1280 mGym2 Gycm2 uGym2 cGycm2 or equivalent. FINDINGS: Fluoroscopic images during injection for pain management demonstrate multilevel degeneration changes throughout the spine. No evidence for fracture. No acute process identified. IMPRESSION: 1. No evidence for intraoperative complication. 2. Please see the operative/procedural note for further details. [facility], , 02/02/2025 11:47 AM
== END 2025-02-02 08:17 | disposition home or self-care (01) ==
LOC: ORPAIN 06:27
PROVIDERS: ATTEND Specialist
DX: M47.22 Other spondylosis with radiculopathy, cervical region (principal)
CPT/HCPCS: 62321; J1100; Q9966

== ENCOUNTER → 2025-02-22 | Outpatient (CLI) | payer BC ==
[2025-02-22 11:00] VITALS: BP 123/88; PULSE 81; RESP 16
--- NOTE | 2025-02-22 15:47 | P.PAINPG ---
PQRS Measure Charge Sheet Comment: HISTORY OF PRESENT ILLNESS: A 34 yr old male presents today w severe and chronic neck pain secondary to radiculopathy, spondylosis and facet arthropathy without myelopathy for evaluation s/p GERARD C6-C7 #2. Pt states he experienced 50 % pain relief x 2 wks s/p procedure. Pt states pain level is provoked at 1-5 /10 in intensity, intermittent, localized in the mid to lower cervical spine, predominantly axial, sharp in character w occasional shooting pain towards the L side of neck. Pain is provoked by lifting. Pain is alleviated by PT x 6 wks which ended in Oct 2024, physician guided home exercises 4-5 times weekly since Oct 2024, medications, topical, THC, repositioning and rest . Interventional procedures include GERARD C6-C7 x1 Medications include Ibu, Cannabis use REVIEW OF ORGAN SYSTEMS: CONSTITUTIONAL: No fevers or chills. No recent weight loss. NEUROLOGICAL: + numbness and tingling along the distal extremities. No seizure disorders or headaches. MUSCULOSKELETAL: + pain PSYCHIATRIC: Denies current depression or suicidal thoughts. Physical Examinations : Constitutional : Cooperative , not in acute distress . Neurologic : Cranial nerve II to XII intact. No focal neurological deficits. Psychiatric : alert & oriented x 3. Matching mood & appropriate affect. Judgment & insight intact. Musculoskeletal : Cervical Spine Motor strength in the deltoid and biceps: Normal right side. Normal Left side Motor strength biceps and the wrist extensors: Normal right side . Normal left side Motor strength in the triceps muscle: Normal right side. Normal left side Deep tendon reflexes: Normal at the biceps. Normal at Brachioradialis. Normal at triceps Vertebral body tenderness to deep palpation over C6 Cervical facet loading test: positive L C4-C5, C5-C6 Spurling test: positive L> R C6-C7 Neck distraction test: positive bilaterally Kenny sign: positive bilaterally Lumbar spine Motor strength lower extremities ,thigh and legs 5/5 Right side , 5/5 Left side Deep tendon reflexes : Normal Knee Jerk. Normal Ankle Jerk Vertebral body tenderness over Cornejo Test positive Lumbar facet Loading Test: positive Right / positive Left Range of motion of the lumbar spine Flexion 30 degrees, extension 10 degrees Straight Leg Raise test: Left/ Right positive at degrees Ranjan test: positive right / positive left. Severe tenderness over the Sacroiliac joint on the Right / Left sides Gaenslen test: positive bilaterally Seated flexion test: positive bilaterally. Sacral spine : Severe tenderness over the Sacroiliac joint: right side / left side Range of motion: Flexion of the lumbar spine <60 degrees Range of motion: Extension of the lumbar spine <20 degrees Gaenslen's Test positive Ranjan test: positive right side / left side Thigh Thrust Test Sacral Thrust Test Imaging: MRI non contrast cervical spine from 10/24/25 reviewed Assessment/ Plan : L paracentral C5-C6 herniation Recommendation of L MBB C4-C5, C5-C6 #1. Risks, benefits of procedure discussed and patient verbalized understanding. Protocol for discontinuation/continuation of medication surrounding procedure discussed. Minimal anesthesia including Fentanyl and Versed if clinically indicated. All questions answered. I have spent greater than 30 minutes on patient care today. Dr Fox was available by phone for the evaluation of this patient. The time was used to review the medical records including relevant urine studies and Prescription history (MAPs), review of the available imaging, evaluation and examination of the patient, coordination of care with the medical staff and if applicable referring physicians, as well as creation of the medical record PQRS Narrative: Smoking Status Never smoker Hx Alcohol Use (MH) No Home Medications: Ambulatory Orders Escitalopram [Lexapro] 10 mg PO DAILY 07/31/24 Losartan-Hctz 50-12.5 mg [Hyzaar 50-12.5] 1 tab PO DAILY 07/31/24 Rosuvastatin [Crestor] 10 mg PO DAILY 07/31/24 Ibuprofen [Motrin] 800 mg PO Q8H PRN 01/03/25 Controlled Substance Measures - Controlled Substance Measures Is patient prescribed a controlled substance at discharge?: No
== END ==
LOC: PNWHC3 10:21
PROVIDERS: ATTEND Specialist
DX: M50.222 Other cervical disc displacement at C5-C6 level (principal); G89.29 Other chronic pain
CPT/HCPCS: 99211

== ENCOUNTER → 2025-03-08 | Day surgery (SDC) | payer BC ==
[~2025-03-08] MED LIST changes: -LACTATED RINGERS 1,000 ML IV SCH; +MIDAZOLAM 2 MG/2 ML VIAL ONE; +ROPIVACAINE 5 MG/ML 30 ML VIAL ONE; +fentaNYL (PF) 50 MCG/ML 2 ML AMP ONE
[2025-03-08] MEDS: IV FLUID CONTINUATION 1,000 ML IV ONE (08:19)
[2025-03-08 08:35] VITALS: RESP 16; TEMP 97.1
[2025-03-08] MEDS: LACTATED RINGERS 1,000 ML IV SCH (08:35)
[2025-03-08] MEDS: IV FLUID CONTINUATION 700 ML IV ONE (09:43)
--- NOTE | 2025-03-08 09:44 | P.PCN ---
Date of Procedure: 03/08/25 Procedure(s) Performed: PREOPERATIVE DIAGNOSIS: 1-Cervical Spondylosis with Facet Arthropathy.without myelopathy. POSTOPERATIVE DIAGNOSIS:1-cervical spondylosis with facet arthropathy without myelopathy. PROCEDURES: Diagnostic left C4 , C5 , and C6 medial branch blocks, with fluoroscopic guidance (fluoroscopy images available in radiology department ) ( to target the facet joint at left C4-5, C5-6 )#1st ANESTHESIA: moderate sedation with Versed 2 mg , and fentanyl 50 micrograms(sedation is started 09:24 ,end 09:37 ) EBL: Minimal PROCEDURE INDICATION: The patient with neck pain secondary to cervical arthropathy unresponsive to more conservative treatments. PROCEDURE DESCRIPTION / TECHNIQUE: The patient was seen and identified in the preoperative area. Risks, benefits, complications, and alternatives were discussed with the patient, the patient agreed to proceed with the procedure and signed the consent. IV was started. Vital signs remained stable throughout the procedure. Patient was taken to the OR and time out was completed. The patient was placed in the lateral position left side up on the procedure table.. The cervical area was prepped and draped in the usual sterile fashion. Critical pause was taken. Vital signs were closely monitored during the procedure. Conscious sedation was used during the procedure to decrease patients anxiety. Using cross-table lateral fluoroscopy, the centroid of the trapezoid of Left C4 , C5 and C6, was identified, marked, and localized with 1% lidocaine 1 ml at each level for skin and Sub Q infiltrations . Subsequently, a 23 G 3 spinal needle was advanced guided by fluoroscopy to the centroid of the trapezoid of left C4 , C5, C6 . [place] tip position was confirmed at the centroid of the trapezoids of Left C4 , C5 ,C6 with anteroposterior fluoroscopy. Subsequently, 1.5 ml of preservative-free Ropivacaine 0.5% , and half ml of the was injected after negative aspiration for blood and CSF. [place] was then removed intact . COMPLICATIONS: No acute complications. COMMENTS: Patient was placed in lateral position because we could not visualize C6 in the prone position DISPOSITION / PLANS: The patient was placed in a supine position and transferred to the recovery area in a stable condition for observation and was discharged from the recovery room after meeting discharge criteria. Home discharge instructions given to the patient by the staff. The patient was reexamined prior to discharge. The patient will schedule a follow up in the clinic in 2-4 weeks.
--- NOTE | 2025-03-08 09:56 | FL ---
Fluoroscopy INDICATION: Pain FINDINGS: Fluoroscopy time: 63.9 seconds. Total dose area product (DAP) in uGy*m?, mGy*cm? (or similar): 0.19295 Images obtained: 4. Images document Jennings directed towards the cervical spine IMPRESSION: 1. Documentation of fluoroscopy. [facility], , 03/08/2025 9:54 AM
[2025-03-08 10:07] VITALS: BP 122/80; PULSE 76
== END ==
LOC: ORPAIN 08:05
PROVIDERS: ATTEND Specialist
DX: M47.812 Spondylosis without myelopathy or radiculopathy, cervical region (principal)
CPT/HCPCS: 64490; 64491; J2250; J3010; J2795; 99152

== ENCOUNTER → 2025-04-23 | Outpatient (CLI) | payer BC ==
--- NOTE | 2025-04-23 22:20 | XR ---
EXAMINATION TYPE: XR chest 2V DATE OF EXAM: 04/23/2025 10:56 AM COMPARISON: 06/27/2015 CLINICAL INDICATION: Male, 34 years old with history of Z01.818 ENCOUNTER FOR OTHER PREPROCEDURAL EXA MINAT, TECHNIQUE: XR chest 2V view(s) obtained. FINDINGS: The heart size is normal. The pulmonary vasculature is normal. The lungs are clear. IMPRESSION: 1. No acute pulmonary process. [facility], , 04/23/2025 10:17 PM
== END | disposition home or self-care (01) ==
LOC: RADXRMAIN 10:45
PROVIDERS: ATTEND Internal Medicine
DX: Z01.818 Encounter for other preprocedural examination (principal)
CPT/HCPCS: 71046